=== PATIENT | female | born 1960 | race Caucasian/White ===

== ENCOUNTER → 2017-12-17 | Outpatient (CLI) | payer BC ==
--- NOTE | 2017-12-17 11:46 | DIAGNOSTIC IMAGING REPORT ---
CHEST 2 VIEWS ROUTINE HISTORY: COUGH COMPARISON: None. FINDINGS: The lungs are clear. Cardiac silhouette is normal in size. No pleural effusions. No pneumothorax. IMPRESSION: No acute process. Electronically signed by: Filemon Henriquez M.D. 12/17/2017 11:44 AM Dictated Date/Time: 12/17/2017 11:42 AM
== END | disposition home or self-care (01) ==
LOC: C.RADBC 11:18
PROVIDERS: ATTEND Family Medicine
DX: R05 Cough (principal)

== ENCOUNTER 2018-06-06 15:34 | Emergency (ER) | payer BC ==
[~2018-06-06] VITALS: Ht 162.6 cm; Wt 112.1 kg
[2018-06-06 15:38] VITALS: TEMP 37.4
[2018-06-06 16:00] VITALS: O2SAT 95; Ht 162.6 cm; Wt 112.1 kg
--- NOTE | 2018-06-06 16:20 | DIAGNOSTIC IMAGING REPORT ---
SINGLE VIEW CHEST CLINICAL HISTORY: Dyspnea. FINDINGS: An AP, portable, upright chest radiograph is compared to study dated 12/17/2017. The cardiomediastinal silhouette is unremarkable. There are low lung volumes and bibasilar atelectasis. The lungs and pleural spaces are otherwise clear. No pneumothorax is seen. The bony thorax is grossly intact. IMPRESSION: Low lung volumes with no acute cardiopulmonary abnormality. Electronically signed by: Jh Mulligan M.D. 06/06/2018 4:19 PM Dictated Date/Time: 06/06/2018 4:18 PM
[2018-06-06 16:47] LABS: BASO % 0.3 %; BASO ABS # 0.03 K/uL (0-0.2); EOS % 2.7 %; EOS ABS # 0.28 K/uL (0-0.5); HEMATOCRIT 40.1 % (37-47); HEMOGLOBIN 13.2 g/dL (12.0-16.0); IG# 0.02 K/uL (0.00-0.02); LYMPH % 10.6 %; LYMPH ABS # 1.09 K/uL (1.2-3.4); MEAN CELL VOLUME 87.7 fL (80-100); MEAN CORPUSCULAR HEMOGLOBIN 28.9 pg (25-34); MEAN CORPUSCULAR HGB CONC 32.9 g/dl (32-36); MEAN PLATELET VOLUME 9.7 fL (7.4-10.4); MONO % 7.3 %; MONO ABS # 0.75 K/uL (0.11-0.59); NEUT % 78.9 %; NEUT ABS # 8.13 K/uL (1.4-6.5); PLATELET COUNT 334 K/uL (130-400); RED CELL DISTRIBUTION WIDTH CV 12.9 % (11.5-14.5); RED CELL DISTRIBUTION WIDTH SD 41.3 fL (36.4-46.3)
[2018-06-06 16:57] LABS: INR 0.9 (0.9-1.1); PTT PATIENT 26.5 SECONDS (21.0-31.0)
--- NOTE | 2018-06-06 17:06 | EMERGENCY ROOM VISIT NOTE ---
History Report prepared by Basiliaibcatarino: Yamila Mobley Under the Supervision of: Dr. Kyle Alonso D.O. First contact with patient: 15:56 Chief Complaint: CHEST PAIN Stated Complaint: CHEST PAINS Nursing Triage Summary: Patient c/o right sided chest pain under ribs for 2 days. Pain is intermittent and worse when she moves side to side and takes a deep breath.Patient was seen at PCP and sent to ER for evaluation History of Present Illness The patient is a 58 year old female who presents to the Emergency Room with complaints of constant R sided chest pain beginning 3 days ago. She notes the pain worsens with exertion and pressure. The patient denies nausea, vomiting, abdominal pain, back pain, blood in urine, or leg pain. She reports some occasional swelling of her feet. The patient denies a personal or family history of clots or early onset heart disease. She also denies a history of stent, cardiac catheterization, or stress test. The patient denies recent travel or surgery, and notes her PCP referred her to the ED. She states she takes HTN and cholesterol medication. Source of History: patient Onset: 3 days ago Position: chest (right) Timing: constant Associated Symptoms: No nausea, No vomiting, No back pain, No urinary symptoms Note: Associated symptom: occasional foot swelling. Denies: leg pain Review of Systems See HPI for pertinent positives & negatives. A total of 10 systems reviewed and were otherwise negative. Past Medical & Surgical Medical Problems: (1) High cholesterol (2) HTN (hypertension) Family History FHx: heart disease Social History Smoking Status: Never Smoker Smokeless Tobacco Use: No Alcohol Use: occasionally Current/Historical Medications Scheduled [Blood Pressure], 1 DOSE PO DAILY [Cholesterol Med], 1 DOSE PO DAILY Allergies Coded Allergies: Lisinopril (Unverified Adverse Reaction, Intermediate, COUGH, 06/06/18) Physical Exam Vital Signs Date Time Temp Pulse Resp B/P (MAP) Pulse Ox O2 Delivery O2 Flow Rate FiO2 06/06/18 20:43 86 18 148/79 95 06/06/18 20:30 86 18 148/79 95 Room Air 06/06/18 18:31 89 18 156/92 98 Room Air 06/06/18 17:21 92 06/06/18 17:17 81 20 117/85 98 Room Air 06/06/18 16:00 95 Room Air 06/06/18 16:00 95 Room Air 06/06/18 15:40 Room Air 06/06/18 15:38 37.4 107 16 184/85 95 Room Air Physical Exam GENERAL: Patient is awake, alert, and in no acute distress. Patient is resting comfortably and showing no signs of anxiety EYES: The conjunctivae are clear. The pupils are round and reactive. EARS, NOSE, MOUTH AND THROAT: The nose is without any evidence of any deformity. Mucous membranes are moist. Tongue is midline NECK: The neck is nontender and supple. RESPIRATORY: Splitting respirations noted, lung sounds clear throughout. CARDIOVASCULAR: Regular rate and rhythm noted. There no murmurs rubs or gallops normal S1 normal S2 GASTROINTESTINAL: The abdomen is soft. Bowel sounds are present in all quadrants. Abdomen is nontender. MUSCULOSKELETAL/EXTREMITIES: There is no evidence of gross deformity. Full range of motion is noted in the hips and shoulders. SKIN: Trace pedal edema bilaterally, excoriated rash noted in both lower extremities NEUROLOGIC: Patient is awake alert and oriented x3. Medical Decision & Procedures ER Provider Diagnostic Interpretation: Radiology results as stated below per my review and radiologist interpretation: SINGLE VIEW CHEST CLINICAL HISTORY: Dyspnea. FINDINGS: An AP, portable, upright chest radiograph is compared to study dated 12/17/2017. The cardiomediastinal silhouette is unremarkable. There are low lung volumes and bibasilar atelectasis. The lungs and pleural spaces are otherwise clear. No pneumothorax is seen. The bony thorax is grossly intact. IMPRESSION: Low lung volumes with no acute cardiopulmonary abnormality. Electronically signed by: Jh Mulligan M.D. 06/06/2018 4:19 PM Dictated Date/Time: 06/06/2018 4:[address] ANGIOGRAM OF THE CHEST CLINICAL HISTORY: Atypical chest pain. COMPARISON STUDY: Chest x-ray dated 06/06/2018. TECHNIQUE: Following the IV administration of 95 cc of Optiray 320, CT angiogram of the chest was performed from the upper abdomen to the thoracic inlet utilizing the pulmonary embolus protocol. Images are reviewed in the axial, sagittal, and coronal planes. 3-D MIPS images are created and assessed. IV contrast was administered without complication. A dose lowering technique was utilized adhering to the principles of ALARA. The examination is compromised by motion artifact. CT DOSE: 617.77 mGy.cm FINDINGS: Thyroid: Imaged portions of the thyroid gland are normal in size and attenuation. Thoracic aorta: The thoracic aorta is normal in caliber and demonstrates bovine variant arch anatomy. No dissection is seen. Pulmonary vasculature: The pulmonary trunk is normal in caliber. There are no filling defects identified in main, lobar, or proximal segmental pulmonary branches to suggest pulmonary embolus. Evaluation of the peripheral branches is degraded by motion artifact. Heart: The heart is top normal in size and without pericardial effusion. Lungs and pleural spaces: Evaluation of lung parenchyma is degraded by motion artifact. There is no airspace consolidation or pleural effusion. Dependent atelectasis is observed. The trachea and central airways are clear. Mediastinum: There is no mediastinal lymphadenopathy. Raven: Clear. Axillae: There is no axillary lymphadenopathy. Upper abdomen: The liver is enlarged and steatotic. There is a 1.4 cm hypervascular lesion in the dome of liver seen on image #100. A small hiatal hernia is noted. Diverticulosis is present in the partially imaged left colon. Skeletal structures: The skeletal structures are osteopenic. No lytic or blastic bony lesions are seen. IMPRESSION: 1. There is no evidence of central pulmonary embolus in the main, lobar, or proximal segmental pulmonary arteries. 2. There is no airspace consolidation or pleural effusion. 3. Hepatomegaly and hepatic steatosis. 4. There is a 1.4 cm hypervascular lesion in the dome of the liver. This is of low suspicion if there is no cancer history, and although incompletely characterized likely represents a hemangioma. This could be further assessed with a CT or MRI of the liver on a nonemergent basis if clinically warranted. Electronically signed by: Jh Mulligan M.D. 06/06/2018 5:58 PM Dictated Date/Time: 06/06/2018 5:[address] SCAN OF THE ABDOMEN AND PELVIS WITHOUT IV CONTRAST CLINICAL HISTORY: Right upper quadrant abdominal pain. COMPARISON STUDY: Chest CT performed the same day 06/06/2018. TECHNIQUE: CT scan of the abdomen and pelvis is performed from the lung bases to the proximal femora. Images are reviewed in the axial, sagittal, and coronal planes. IV contrast was not administered for this examination. A dose lowering technique was utilized adhering to the principles of ALARA. CT DOSE: 1191.76 mGy.cm FINDINGS: Lung bases: The heart is normal in size and without pericardial effusion. The lung bases are clear noting dependent atelectasis. Liver: The unenhanced liver is enlarged, measuring 19.4 cm in length. This is consistent with hepatic steatosis. Fatty sparing is seen adjacent to gallbladder fossa. There is no intrahepatic biliary ductal dilatation. 1.4 cm hyperdense lesion is again suggested at the dome of the liver on image #44. Gallbladder: Unremarkable. Spleen: Normal in size and attenuation. Pancreas: Unremarkable. Adrenal glands: Unremarkable. Kidneys: The unenhanced kidneys are normal in size and without hydronephrosis. Excreted contrast fills the renal collecting system. The presence renal calculi cannot be assessed. There is no evidence of contour deforming renal mass lesion. Abdominal vasculature: The abdominal aorta is normal in course and caliber noting scattered foci of atherosclerotic calcification. Bowel: There is moderate colonic diverticulosis without CT evidence of acute diverticulitis. No bowel obstruction is seen. The appendix is well-visualized and normal. Peritoneum: There is no intraperitoneal free air or abdominal ascites. There is a small fat-containing umbilical hernia. There is mild fat stranding seen in the right upper quadrant between the hepatic flexure the liver seen on image #177. This appears to contain central fat, and likely represents epiploic appendagitis or a tiny mental infarct. Lymphadenopathy: None. Pelvic viscera: The bladder is normal in appearance, and filled with excreted IV contrast. The Uterus and adnexa are normal as visualized. Skeletal structures: The skeletal structures appear osteopenic. No lytic or blastic lesions are seen. IMPRESSION: 1. There is mild fat stranding with central fat density seen in the right upper quadrant between the liver and the hepatic flexure. This likely represents epiploic appendagitis or a tiny omental infarct. 2. Hepatomegaly and hepatic steatosis. 3. Moderate colonic diverticulosis without CT evidence of acute diverticulitis. 4. Additional findings as above. Electronically signed by: Jh Mulligan M.D. 06/06/2018 7:03 PM Dictated Date/Time: 06/06/2018 6:54 PM Laboratory Results 06/06/18 16:35 Red Blood Count 4.57, Mean Corpuscular Volume 87.7, Mean Corpuscular Hemoglobin 28.9, Mean Corpuscular Hemoglobin Concent 32.9, Mean Platelet Volume 9.7, Neutrophils (%) (Auto) 78.9, Lymphocytes (%) (Auto) 10.6, Monocytes (%) (Auto) 7.3, Eosinophils (%) (Auto) 2.7, Basophils (%) (Auto) 0.3, Neutrophils # (Auto) 8.13, Lymphocytes # (Auto) 1.09, Monocytes # (Auto) 0.75, Eosinophils # (Auto) 0.28, Basophils # (Auto) 0.03 06/06/18 16:35 Test 06/06/18 16:35 06/06/18 16:41 06/06/18 17:10 White Blood Count 10.30 K/uL (4.8-10.8) Red Blood Count 4.57 M/uL (4.2-5.4) Hemoglobin 13.2 g/dL (12.0-16.0) Hematocrit 40.1 % (37-47) Mean Corpuscular Volume 87.7 fL (80-100) Mean Corpuscular Hemoglobin 28.9 pg (25-34) Mean Corpuscular Hemoglobin Concent 32.9 g/dl (32-36) Platelet Count 334 K/uL (130-400) Mean Platelet Volume 9.7 fL (7.4-10.4) Neutrophils (%) (Auto) 78.9 % Lymphocytes (%) (Auto) 10.6 % Monocytes (%) (Auto) 7.3 % Eosinophils (%) (Auto) 2.7 % Basophils (%) (Auto) 0.3 % Neutrophils # (Auto) 8.13 K/uL (1.4-6.5) Lymphocytes # (Auto) 1.09 K/uL (1.2-3.4) Monocytes # (Auto) 0.75 K/uL (0.11-0.59) Eosinophils # (Auto) 0.28 K/uL (0-0.5) Basophils # (Auto) 0.03 K/uL (0-0.2) RDW Standard Deviation 41.3 fL (36.4-46.3) RDW Coefficient of Variation 12.9 % (11.5-14.5) Immature Granulocyte % (Auto) 0.2 % Immature Granulocyte # (Auto) 0.02 K/uL (0.00-0.02) Prothrombin Time 9.8 SECONDS (9.0-12.0) Prothromb Time International Ratio 0.9 (0.9-1.1) Activated Partial Thromboplast Time 26.5 SECONDS (21.0-31.0) Partial Thromboplastin Ratio 1.0 D-Dimer 590 ug/L FEU (0-500) Anion Gap 6.0 mmol/L (3-11) Est Creatinine Clear Calc Drug Dose 91.7 ml/min Estimated GFR () 91.4 Estimated GFR (Non- 78.9 BUN/Creatinine Ratio 16.1 (10-20) Calcium Level 8.8 mg/dl (8.5-10.1) Total Bilirubin 0.5 mg/dl (0.2-1) Aspartate Amino Transf (AST/SGOT) 22 U/L (15-37) Alanine Aminotransferase (ALT/SGPT) 38 U/L (12-78) Alkaline Phosphatase 81 U/L (45-117) Troponin I < 0.015 ng/ml (0-0.045) Total Protein 8.2 gm/dl (6.4-8.2) Albumin 3.9 gm/dl (3.4-5.0) Globulin 4.3 gm/dl (2.5-4.0) Albumin/Globulin Ratio 0.9 (0.9-2) Lipase 132 U/L (73-393) Bedside Troponin I < 0.030 ng/ml (0-0.045) Urine Color YELLOW Urine Appearance CLEAR (CLEAR) Urine pH 6.5 (4.5-7.5) Urine Specific [place] 1.010 (1.000-1.030) Urine Protein NEG (NEG) Urine Glucose (UA) NEG (NEG) Urine Ketones NEG (NEG) Urine Occult Blood NEG (NEG) Urine Nitrite NEG (NEG) Urine Bilirubin NEG (NEG) Urine Urobilinogen NEG (NEG) Urine Leukocyte Esterase NEG (NEG) Laboratory results per my review. Medications Administered Medications (Trade) Dose Ordered Sig/Neil Route Start Time Stop Time Status Last Admin Dose Admin Sodium Chloride 1,000 ml @ 999 mls/hr Q1H1M STAT IV 06/06/18 18:10 06/06/18 19:10 DC 06/06/18 18:31 999 MLS/HR Aspirin (Aspirin Chew) 324 mg NOW STAT PO 06/06/18 19:22 06/06/18 19:23 DC 06/06/18 19:43 324 MG Oxycodone HCl (Roxicodone Immediate Rel 5MG Home Pack) 1 homepack UD ONCE PO 06/06/18 20:00 06/06/18 20:03 DC 06/06/18 20:07 1 HOMEPACK ECG Per My Interpretation Indication: chest pain Rate (beats per minute): 94 Rhythm: normal sinus Findings: other (PVCs noted. apical and lateral ST depressions.) Comparison ECG Date: no prior available ED Course 155: The patient was evaluated in room A12A. A complete history and physical examination were performed. 1744: Ordered Ioversol 111 ml IV 1809: Ordered NSS 1,000 ml @ 999 mls/hr IV 1813: I reevaluated and updated the patient. 1814: Ordered Ioversol 125 ml IV 1921: Ordered Aspirin 324 mg PO 1927: I discussed the patient's case with Dr. Lorenzo, [facility] cardiology. He will evaluate the patient. 1939: Upon reevaluation, the patient is feeling better. I discussed the results and treatment plan with her. She verbalized agreement of the treatment plan. The patient was discharged home. 1999: Ordered Oxycodone HCl 1 homepack PO Medical Decision Etiologies such as cardiac ischemia, aortic dissection, pulmonary embolism, pneumonia, pneumothorax, musculoskeletal, infections, pericarditis, myocarditis , esophageal rupture, gastrointestinal, as well as others were entertained. Nursing notes reviewed. The patient's EKG was reviewed from the office. The patient is a 58-year-old female who presented to the emergency department for an evaluation of chest pain. The patient's pain appeared to be very pleuritic in nature. It was reproducible with some palpation over the upper abdomen. The patient did have an elevated d-dimer but CAT scan did not reveal any signs of pulmonary embolism. I discussed patient's laboratory and radiographic studies with her. Because of the ongoing abdominal pain I did a CAT scan of the abdomen and pelvis as well. It showed possible signs of epiploic appendicitis but I do not feel this would completely explain the patient's symptoms. The patient did have an abnormal EKG but it did not appear to be completely consistent with ischemia. Despite having ongoing pain for greater than 24 hours her troponin was negative. I discussed this case with the on-call carmen Hatch dragline engineer. At this time he does feel the patient could follow-up as an outpatient as long as she knew to return immediately if symptoms change worsen or the need arises. I discussed patient's laboratory and radiographic studies with her. She was encouraged to rest and avoid any strenuous activity. She was also encouraged to call to schedule a follow-up appointment with cardiology but return if symptoms change worsen or the need arises. Medication Reconcilliation Current Medication List: was personally reviewed by me Blood Pressure Screening Patient's blood pressure: Elevated blood pressure Blood pressure disposition: Elevated BP felt to be situational Consults Time Called: 1919 Consulting Physician: Dr. Lorenzo, [facility] cardiology Returned Call: 1927 I discussed the patient's case with Dr. Lorenzo, [facility] cardiology. He will evaluate the patient Impression Primary Impression: Pleuritic chest pain Scribe Attestation The scribe's documentation has been prepared under my direction and personally reviewed by me in its entirety. I confirm that the note above accurately reflects all work, treatment, procedures, and medical decision making performed by me. Departure Information Dispostion Home / Self-Care Referrals Lorena Mobley D.O. (PCP) Forms Call Back Authorization, HOME CARE DOCUMENTATION FORM, IMPORTANT VISIT INFORMATION Patient Instructions My [facility] Additional Instructions Call your family doctor to schedule a follow-up appointment. Rest and avoid any strenuous activity. Drink plenty clear liquids. Continue to use Motrin or Tylenol as directed for pain. If you consider using the stronger pain medication I would recommend an [id number] stool softener such as Colace or MiraLAX. Call to schedule a follow-up appointment with the dragline engineer. Return to the emergency department immediately if symptoms change worsen or the need arises. You will need a follow-up appointment with your doctor to also schedule a triple phase CAT scan specifically of your liver as recommended by the radiologist.
[2018-06-06 17:09] LABS: ALBUMIN 3.9 gm/dl (3.4-5.0); ALKALINE PHOSPHATASE 81 U/L (45-117); ALT/SGPT 38 U/L (12-78); AST/SGOT 22 U/L (15-37); BLOOD UREA NITROGEN 13 mg/dl (7-18); CALCIUM 8.8 mg/dl (8.5-10.1); CARBON DIOXIDE 27 mmol/L (21-32); CREATININE 0.82 mg/dl (0.60-1.20); GLUCOSE 81 mg/dl (70-99); LIPASE 132 U/L (73-393); POTASSIUM 3.4 mmol/L (3.5-5.1); SODIUM 136 mmol/L (136-145); TOTAL PROTEIN 8.2 gm/dl (6.4-8.2)
[2018-06-06] MEDS ORDERED: OPTIRAY 320 IV PRN ×2 (17:45→18:15)
--- NOTE | 2018-06-06 17:59 | DIAGNOSTIC IMAGING REPORT ---
CT ANGIOGRAM OF THE CHEST CLINICAL HISTORY: Atypical chest pain. COMPARISON STUDY: Chest x-ray dated 06/06/2018. TECHNIQUE: Following the IV administration of 95 cc of Optiray 320, CT angiogram of the chest was performed from the upper abdomen to the thoracic inlet utilizing the pulmonary embolus protocol. Images are reviewed in the axial, sagittal, and coronal planes. 3-D MIPS images are created and assessed. IV contrast was administered without complication. A dose lowering technique was utilized adhering to the principles of ALARA. The examination is compromised by motion artifact. CT DOSE: 617.77 mGy.cm FINDINGS: Thyroid: Imaged portions of the thyroid gland are normal in size and attenuation. Thoracic aorta: The thoracic aorta is normal in caliber and demonstrates bovine variant arch anatomy. No dissection is seen. Pulmonary vasculature: The pulmonary trunk is normal in caliber. There are no filling defects identified in main, lobar, or proximal segmental pulmonary branches to suggest pulmonary embolus. Evaluation of the peripheral branches is degraded by motion artifact. Heart: The heart is top normal in size and without pericardial effusion. Lungs and pleural spaces: Evaluation of lung parenchyma is degraded by motion artifact. There is no airspace consolidation or pleural effusion. Dependent atelectasis is observed. The trachea and central airways are clear. Mediastinum: There is no mediastinal lymphadenopathy. Raven: Clear. Axillae: There is no axillary lymphadenopathy. Upper abdomen: The liver is enlarged and steatotic. There is a 1.4 cm hypervascular lesion in the dome of liver seen on image #100. A small hiatal hernia is noted. Diverticulosis is present in the partially imaged left colon. Skeletal structures: The skeletal structures are osteopenic. No lytic or blastic bony lesions are seen. IMPRESSION: 1. There is no evidence of central pulmonary embolus in the main, lobar, or proximal segmental pulmonary arteries. 2. There is no airspace consolidation or pleural effusion. 3. Hepatomegaly and hepatic steatosis. 4. There is a 1.4 cm hypervascular lesion in the dome of the liver. This is of low suspicion if there is no cancer history, and although incompletely characterized likely represents a hemangioma. This could be further assessed with a CT or MRI of the liver on a nonemergent basis if clinically warranted. Electronically signed by: Jh Mulligan M.D. 06/06/2018 5:58 PM Dictated Date/Time: 06/06/2018 5:51 PM
[2018-06-06] MEDS ORDERED: SODIUM CHLORIDE 0.9% 1000ML 1,000 ML IV STA (18:10)
[2018-06-06] MEDS ORDERED: BLOOD PRESSURE PO (18:25)
[2018-06-06] MEDS ORDERED: CHOLESTEROL MED PO (18:25)
--- NOTE | 2018-06-06 19:04 | DIAGNOSTIC IMAGING REPORT ---
CT SCAN OF THE ABDOMEN AND PELVIS WITHOUT IV CONTRAST CLINICAL HISTORY: Right upper quadrant abdominal pain. COMPARISON STUDY: Chest CT performed the same day 06/06/2018. TECHNIQUE: CT scan of the abdomen and pelvis is performed from the lung bases to the proximal femora. Images are reviewed in the axial, sagittal, and coronal planes. IV contrast was not administered for this examination. A dose lowering technique was utilized adhering to the principles of ALARA. CT DOSE: 1191.76 mGy.cm FINDINGS: Lung bases: The heart is normal in size and without pericardial effusion. The lung bases are clear noting dependent atelectasis. Liver: The unenhanced liver is enlarged, measuring 19.4 cm in length. This is consistent with hepatic steatosis. Fatty sparing is seen adjacent to gallbladder fossa. There is no intrahepatic biliary ductal dilatation. 1.4 cm hyperdense lesion is again suggested at the dome of the liver on image #44. Gallbladder: Unremarkable. Spleen: Normal in size and attenuation. Pancreas: Unremarkable. Adrenal glands: Unremarkable. Kidneys: The unenhanced kidneys are normal in size and without hydronephrosis. Excreted contrast fills the renal collecting system. The presence renal calculi cannot be assessed. There is no evidence of contour deforming renal mass lesion. Abdominal vasculature: The abdominal aorta is normal in course and caliber noting scattered foci of atherosclerotic calcification. Bowel: There is moderate colonic diverticulosis without CT evidence of acute diverticulitis. No bowel obstruction is seen. The appendix is well-visualized and normal. Peritoneum: There is no intraperitoneal free air or abdominal ascites. There is a small fat-containing umbilical hernia. There is mild fat stranding seen in the right upper quadrant between the hepatic flexure the liver seen on image #177. This appears to contain central fat, and likely represents epiploic appendagitis or a tiny mental infarct. Lymphadenopathy: None. Pelvic viscera: The bladder is normal in appearance, and filled with excreted IV contrast. The Uterus and adnexa are normal as visualized. Skeletal structures: The skeletal structures appear osteopenic. No lytic or blastic lesions are seen. IMPRESSION: 1. There is mild fat stranding with central fat density seen in the right upper quadrant between the liver and the hepatic flexure. This likely represents epiploic appendagitis or a tiny omental infarct. 2. Hepatomegaly and hepatic steatosis. 3. Moderate colonic diverticulosis without CT evidence of acute diverticulitis. 4. Additional findings as above. Electronically signed by: Jh Mulligan M.D. 06/06/2018 7:03 PM Dictated Date/Time: 06/06/2018 6:54 PM
[2018-06-06] MEDS ORDERED: ASPIRIN 81 MG CHEW PO STA (19:22)
[2018-06-06] MEDS ORDERED: OXYCODONE IR HOME PACK PO ONE (20:00)
[2018-06-06 20:43] VITALS: BP 148/79; PULSE 86; O2SAT 95
== END 2018-06-06 20:44 | disposition home or self-care (01) ==
LOC: C.EDB 15:36 → C.EDA 20:44
DX: R07.1 Chest pain on breathing (principal); I10 Essential (primary) hypertension; Z79.899 Other long term (current) drug therapy; Z88.8 Allergy status to other drugs, medicaments and biological substances; Z82.49 Family history of ischemic heart disease and other diseases of the circulatory system

== ENCOUNTER → 2018-06-27 | Outpatient (CLI) | payer BC ==
[~2018-06-27] MED LIST: BLOOD PRESSURE PO; CHOLESTEROL MED PO; GADOXETATE DISODIUM (NON-WT BASED PROCEDURE) IV PRN
--- NOTE | 2018-06-27 15:56 | DIAGNOSTIC IMAGING REPORT ---
MRI OF THE ABDOMEN COMBO CLINICAL HISTORY: Follow-up liver lesion.. COMPARISON STUDY: Chest and abdominal CT scans dated 06/06/2018. TECHNIQUE: MRI of the abdomen is performed transverse T1 and T2-weighted sequences in the axial and coronal planes. Contrast enhanced sequences were acquired following the IV administration of 10 cc of Eovist. Subtraction imaging and diffusion-weighted imaging were performed. High-resolution MRCP images orbits obtained. 3-D reformats were created and assessed. FINDINGS: Lower chest: No pleural effusion is identified. The heart is normal in size. Liver: The liver is enlarged, measuring 19.3 cm in length. The liver is normal in contour. There is diffuse drop in signal intensity on the opposed phase images indicating severe hepatic steatosis. Fatty sparing is seen adjacent to the gallbladder fossa. No intrahepatic biliary ductal dilatation is seen. The hepatic veins and portal veins are patent. As seen on the CT scans, there is a 1.8 cm T2 faintly hyperintense and arterially hypervascular lesion in hepatic segment VII. This remains hyperintense on the more delayed phase sequences and retains Gadavist on the extended delays. The signal characteristics are consistent with a focal nodular hyperplasia. There is an intensely T2 hyperintense lesion seen more inferiorly in segment VII measuring 1.0 cm. This is also arterially hypervascular; however, this becomes isointense 2 liver on the delayed sequences and does not retain Eovist. This is typical appearance for a small hemangioma. Gallbladder and MRCP: The gallbladder is normal in appearance. No gallstones are identified. There is no intra or extrahepatic biliary ductal dilatation. The common bile duct measures up to 5 mm. There is no evidence of choledocholithiasis. The pancreatic duct is normal in appearance. Spleen: Normal in size and signal intensity. Pancreas: Unremarkable. Adrenal glands: Unremarkable. Kidneys: The kidneys are normal in size and without hydronephrosis. The kidneys enhance and excrete symmetrically. Abdominal aorta: Normal in course and caliber. Bowel: Visualized portions of the small bowel and colon show no evidence of obstruction. Peritoneum: There is no abdominal ascites. Lymphadenopathy: None. Skeletal structures: Visualized skeletal structures times are normal marrow signal intensity. IMPRESSION: 1. A 1.8 cm focal nodular hyperplasia is identified in hepatic segment VII. This corresponds to the lesion seen by CT on 06/06/2018. 2. An additional 1.0 cm hemangioma is noted in the right lobe. 3. Hepatomegaly and hepatic steatosis. 4. Normal MRCP. Electronically signed by: Jh Mulligan M.D. 06/27/2018 3:55 PM Dictated Date/Time: 06/27/2018 3:43 PM
== END | disposition home or self-care (01) ==
LOC: C.MRI 13:34
PROVIDERS: ATTEND Family Medicine
DX: K76.89 Other specified diseases of liver (principal); D18.03 Hemangioma of intra-abdominal structures; R16.0 Hepatomegaly, not elsewhere classified; K76.0 Fatty (change of) liver, not elsewhere classified